=== PATIENT | female | born 1985 | race Caucasian/White ===

== ENCOUNTER → 2016-11-05 | Outpatient (CLI) | payer BC ==
--- NOTE | 2016-11-05 11:42 | RAD ---
EXAM DESCRIPTION: Chest,2 Views CLINICAL HISTORY: Wheezing COMPARISON: None available. FINDINGS: Frontal and lateral views of the chest. Cardiomediastinal and pulmonary vascularity are within normal limits. Lungs are clear without focal consolidative infiltrates. No pleural effusion. No pneumothorax. No acute osseous abnormality. IMPRESSION: No radiographic evidence of acute cardiopulmonary disease. Electronically signed by: Michel Moran MD 11/05/2016 11:41 AM CDT
== END | disposition home or self-care (01) ==
LOC: YCFC.O 09:00
PROVIDERS: ATTEND Nurse Practitioner Family
DX: R06.2 Wheezing (principal)

== ENCOUNTER 2017-02-05 14:26 | Emergency (ER) | payer BC ==
[2017-02-05 14:46] VITALS: TEMP 98.7
--- NOTE | 2017-02-05 16:06 | ED.PDOC ---
History of Present Illness - General Chief Complaint: General Stated Complaint: dizzy, past out yesterday, bloody stool. Time Seen by Provider: 02/05/17 15:35 Source: patient Exam Limitations: no limitations - History of Present Illness Initial Comments: YESTERDAY, PT NOTICED BRIGHT RED BLOOD IN STOOL. BM'S FEEL "SORE" THE PAST 2 D. DENIES H/O HEMORRHOIDS. YESTERDAY HAD SYNCOPAL EPISODE AT HOME. DENIES INJURY ANYWHERE. NO MS CHANGES. PT WENT TO CLINIC TODAY AND FELT DIZZY SO THEY WALKED HER TO ER. ALL SX STARTED YEST. NO SIMILAR SX PREVIOUSLY. Severity: moderate Improving Factors: nothing Worsening Factors: nothing Associated Symptoms: syncope Allergies/Adverse Reactions: Allergies NO KNOWN ALLERGY Allergy (Verified 04/23/12 08:56) Home Medications: Ambulatory Orders Albuterol Sulfate [Proair Hfa] 1 inh INH BID PRN 02/05/17 Mometasone Furoate-Formoterol [Dulera 100-5 Mcg/Act] 2 inh INH BID 02/05/17 Review of Systems - Review of Systems Constitutional: Denies: chills, fever EENTM: States: no symptoms reported Respiratory: States: no symptoms reported Cardiology: States: no symptoms reported Gastrointestinal/Abdominal: Denies: abdominal pain, diarrhea, nausea, vomiting Genitourinary: States: no symptoms reported Musculoskeletal: States: no symptoms reported. Denies: neck pain Skin: States: no symptoms reported Neurological: States: other - NO LIGHT-HEADEDNESS SUPINE. POS LIGHT HEADED WHEN STANDS. Endocrine: States: no symptoms reported Hematologic/Lymphatic: States: no symptoms reported All other Systems: Reviewed and Negative Past Medical History (General) - Patient Medical History Hx Seizures: No Hx Stroke: No Hx Asthma: Yes Hx of COPD: No Hx Cardiac Disorders: No Hx Congestive Heart Failure: No Hx Hypertension: No Hx Thyroid Disease: No Hx Diabetes: No Hx of HIV: No Hx Hepatitis C: No - Vaccination History Hx Tetanus, Diphtheria Vaccination: No Hx Influenza Vaccination: No - Social History Hx Tobacco Use: No Hx Alcohol Use: Yes Hx Substance Use: No Hx Depression: No Hx Physical Abuse: No Hx Emotional Abuse: No Hx Suspected Abuse: No - Female History Patient is a Female of Child Bearing Age (10 -59 yrs old): Yes Hx Last Menstrual Period: 12/21/16 Patient : No Family Medical History - Family History Grandparents Family History: No Known Living Status: Hx Cardiac Disease: Yes Hx Family;Other: uncle- cancer. dad-mi. Physical Exam - Physical Exam General Appearance: Alert, Well Nourished Eye Exam: bilateral normal Ears, Nose, Throat: normal ENT inspection Neck: non-tender, full range of motion, supple Respiratory: chest non-tender, lungs clear, normal breath sounds, no respiratory distress, no accessory muscle use Cardiovascular/Chest: normal peripheral pulses, regular rate, rhythm, no edema, no gallop, no JVD, no murmur Peripheral Pulses: radial,right: 2+, radial,left: 2+ Gastrointestinal/Abdominal: normal bowel sounds, non tender, soft, no organomegaly, no pulsatile mass Rectal Exam: normal rectal tone, other - NO GROSS HEMATURIA. HEMOCCULT PENDING. 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 HEMOCCULT POS. UA PENDING. CMP ELEV LFT'S CBC WNL (HGB 12.9) EKG SINUS TYLER. WITH POS HEMOCCULT STOOLS, MILD LIGHT HEADEDNESS WITH STANDING, AND PT ADMITIS TO POOR PO FLUID INTAKE, I AM GIVING 1 L NS BOLUS. SINCE VS WNL AND NO ANEMIA, IT IS A VERY SLOW GI BLEED, THUS PT DOES NOT NEED ADMISSION. SAFE FOR DC TO HOME WITH CLOSE F/U THIS WEEK THIS WITH PCP TO GET REFERRAL TO GI FOR COLONOSCOPY AND EGD. UA: SMALL LEUK EST, 3-5 WBC. PT IS YOUNG AND ASYMPTOMATIC RE: G/U, THUS NO ABX INDICATED UNTIL CULTURE (ORDERED). - EKG/XRAY/CT EKG: Tyler, Sinus Departure - Departure Clinical Impression: Hematochezia, Heme + stool, Syncope, Light-headed, Elevated LFTs Disposition: Discharge to Home or Self Care Condition: Fair Departure Forms: ED Discharge - Pt. Copy, Patient Portal Self Enrollment Instructions: Fecal Occult Blood Test Diet: resume usual diet Activity: increase activity as tolerated Referrals: Ashtyn Armijo NP [Primary Care Provider] - 1-2 Days Home Medications: Ambulatory Orders Albuterol Sulfate [Proair Hfa] 1 inh INH BID PRN 02/05/17 Mometasone Furoate-Formoterol [Dulera 100-5 Mcg/Act] 2 inh INH BID 02/05/17 Additional Instructions: Please see your regular doctor in the next 2 days so he or she can arrange for you to see a doctor to schedule a colonoscopy and EGD to ascertain the cause of your GI bleeding.
[2017-02-05] MEDS ORDERED: SODIUM CHLORIDE 0.9% 1000ML 1,000 ML IVS ONE (17:10)
[2017-02-05 19:07] VITALS: BP 122/78; O2SAT 97
== END 2017-02-05 19:07 | disposition home or self-care (01) ==
LOC: ER 14:26
DX: K92.1 Melena (principal); R55 Syncope and collapse; R79.89 Other specified abnormal findings of blood chemistry
CPT/HCPCS: 80053; 81001; 82270; 85025; 87086; 93005; J7030

== ENCOUNTER 2017-10-06 23:12 | Emergency (ER) | payer SELFPAY ==
[2017-10-06 23:28] VITALS: BP 107/73; TEMP 98; O2SAT 95
--- NOTE | 2017-10-06 23:51 | ED.PDOC ---
History of Present Illness - General Chief Complaint: Problem Stated Complaint: possible tampon in vagina Time Seen by Provider: 10/06/17 23:49 Source: patient Exam Limitations: no limitations - History of Present Illness Initial Comments: Socorro Gamez 31 y/o female on her periods stated unable retrieve her vaginal tampons for the last 1 1/2 days.Denies fever ,body aches or abdominal pains. Timing/Duration: yesterday Quality: other - NO PAIN Onset Location: unknown Radiation: none Prior abdominal problems: none Sexual intercourse history: single partner Improving Factors: nothing Worsening Factors: nothing Associated Symptoms: denies symptoms Allergies/Adverse Reactions: Allergies NO KNOWN ALLERGY Allergy (Verified 04/23/12 08:56) Home Medications: Ambulatory Orders Albuterol Sulfate [Proair Hfa] 1 inh INH BID PRN 02/05/17 Mometasone Furoate-Formoterol [Dulera 100-5 Mcg/Act] 2 inh INH BID 02/05/17 Clindamycin HCl 150 mg PO TID #15 cap 10/07/17 Review of Systems - Review of Systems Constitutional: States: no symptoms reported EENTM: States: no symptoms reported Respiratory: States: no symptoms reported Cardiology: States: no symptoms reported Gastrointestinal/Abdominal: States: no symptoms reported Musculoskeletal: States: see HPI Skin: States: no symptoms reported Past Medical History (General) - Patient Medical History Hx Seizures: No Hx Stroke: No Hx Asthma: Yes Hx of COPD: No Hx Cardiac Disorders: No Hx Congestive Heart Failure: No Hx Hypertension: No Hx Thyroid Disease: No Hx Diabetes: No Hx of HIV: No Hx Hepatitis C: No Surgical History: no surgical history - Vaccination History Hx Tetanus, Diphtheria Vaccination: No Hx Influenza Vaccination: No - Social History Hx Tobacco Use: No Hx Alcohol Use: Yes Hx Substance Use: No Hx Depression: No Hx Physical Abuse: No Hx Emotional Abuse: No Hx Suspected Abuse: No - Female History Patient is a Female of Child Bearing Age (10 -59 yrs old): Yes Hx Last Menstrual Period: 10/06/17 Patient : No - Triage Comment ED Triage Comment: unable to find tampon that was placed yesterday. Family Medical History - Family History Grandparents Family History: No Known Living Status: Hx Cardiac Disease: Yes Hx Family;Other: uncle- cancer. dad-mi. Physical Exam - Physical Exam General Appearance: Alert, Comfortable, No apparent distress Eyes, Ears, Nose, Throat Exam: normal ENT inspection Neck: non-tender, full range of motion, supple Cardiovascular/Respiratory: regular rate, rhythm, no M/R/G, normal peripheral pulses, normal breath sounds, no respiratory distress Gastrointestinal/Abdominal: normal bowel sounds, non tender, soft Pelvic Exam: speculum exam normal, no cerv. motion tender, other - retained vaginal tampon pulled out with taylor forceps Back Exam: normal inspection, no CVA tenderness, no vertebral tenderness Extremity: non-tender, normal inspection, no pedal edema, no calf tenderness Neurologic: alert, oriented x 3 Progress - Progress Progress: 10/06/17 23:53 Vital Signs - 8 hr 10/06/17 23:25 Temperature 98.0 F Pulse Rate [ 76 Right] Respiratory 20 Rate Blood Pressure 107/73 [Left Arm] O2 Sat by Pulse 95 Oximetry Procedures - Foreign Body Removal Foreign Body Removal: other - vaginal tampons Foreign Body Physician Comment:: pilled out with taylor forceps-uncomplicated Departure - Departure Clinical Impression: Retained tampon Qualifiers: Encounter type: initial encounter Qualified Code(s): T19.2XXA - Foreign body in vulva and vagina, initial encounter Time of Disposition: 00:29 Disposition: Discharge to Home or Self Care Condition: Good Departure Forms: ED Discharge - Pt. Copy, Patient Portal Self Enrollment Referrals: Ashtyn Armijo NP [Primary Care Provider] - 1-2 Weeks Prescriptions: Clindamycin HCl 150 mg PO TID #15 cap Home Medications: Ambulatory Orders Albuterol Sulfate [Proair Hfa] 1 inh INH BID PRN 02/05/17 Mometasone Furoate-Formoterol [Dulera 100-5 Mcg/Act] 2 inh INH BID 02/05/17 Clindamycin HCl 150 mg PO TID #15 cap 10/07/17 Additional Instructions: Return to ER as needed
[2017-10-07] MEDS ORDERED: CLINDAMYCIN HCL CAP 150 MG CAP PO ONE (00:29)
== END 2017-10-07 00:42 | disposition home or self-care (01) ==
LOC: ER 23:12
DX: T19.2XXA Foreign body in vulva and vagina, initial encounter (principal)

== ENCOUNTER 2018-09-27 23:54 | Emergency (ER) | payer SELFPAY ==
[2018-09-28 00:07] VITALS: TEMP 98; O2SAT 96
[2018-09-28] MEDS ORDERED: predniSONE 20 MG TAB PO ONE (00:10)
[2018-09-28] MEDS ORDERED: IBUPROFEN 200 MG TAB PO ONE (00:10)
[2018-09-28] MEDS ORDERED: IPRATROPIUM/ALBUTEROL 3 ML VIAL NEB ONE (00:10)
--- NOTE | 2018-09-28 00:46 | ED.PDOC ---
History of Present Illness - General Chief Complaint: Asthma Stated Complaint: SOB since [id number] today, Hx asthma Time Seen by Provider: 09/28/18 00:10 Source: patient Exam Limitations: no limitations - History of Present Illness Initial Comments: the patient is a 32-year-old female presenting to emergency room secondary to a feeling of upper airway shortness of breath. She does have a history of asthma and does feel like this is an asthma exacerbation. She has used her inhaler and her breathing treatments and is not feeling significantly better. Mild cough. No productive sputum. No sore throat or runny nose yet. No nausea or vomiting. No chest pain. No leg swelling. Symptoms started around 3 PM today. Timing/Duration: other Severity: mild Improving Factors: nothing Worsening Factors: nothing Associated Symptoms: shortness of breath - mild Allergies/Adverse Reactions: Allergies NO KNOWN ALLERGY Allergy (Verified 09/28/18 00:07) Home Medications: Ambulatory Orders Albuterol Sulfate [Proair Hfa] 1 inh INH BID PRN 02/05/17 Mometasone Furoate-Formoterol [Dulera 100-5 Mcg/Act] 2 inh INH BID 02/05/17 predniSONE [Prednisone] 20 mg PO DAILY #3 tab 09/28/18 Review of Systems - Review of Systems Constitutional: States: no symptoms reported EENTM: States: no symptoms reported Respiratory: States: cough, short of breath Cardiology: States: no symptoms reported Gastrointestinal/Abdominal: States: no symptoms reported Genitourinary: States: no symptoms reported Musculoskeletal: States: no symptoms reported Skin: States: no symptoms reported Neurological: States: no symptoms reported Endocrine: States: no symptoms reported All other Systems: No Change from Baseline Past Medical History (General) - Patient Medical History Hx Seizures: No Hx Stroke: No Hx Dementia: No Hx Asthma: Yes Hx of COPD: No Hx Cardiac Disorders: No Hx Congestive Heart Failure: No Hx Pacemaker: No Hx Hypertension: No Hx Thyroid Disease: No Hx Diabetes: No Hx Gastroesophageal Reflux: No Hx Renal Disease: No Hx Cancer: No Hx of HIV: No Hx Hepatitis C: No Hx MRSA: No - Vaccination History Hx Tetanus, Diphtheria Vaccination: No Hx Influenza Vaccination: No - Social History Hx Tobacco Use: No Hx Alcohol Use: Yes Hx Substance Use: No Hx Depression: No Hx Physical Abuse: No Hx Emotional Abuse: No Hx Suspected Abuse: No - Female History Hx Last Menstrual Period: 10/06/17 Patient : No Family Medical History - Family History Grandparents Family History: No Known Living Status: Hx Cardiac Disease: Yes Hx Family;Other: uncle- cancer. dad-mi. Physical Exam - Physical Exam General Appearance: Alert, Comfortable, No apparent distress Eye Exam: bilateral normal Ears, Nose, Throat: hearing grossly normal, normal ENT inspection, normal pharynx Neck: full range of motion, supple Respiratory: other - mild scattered wheezes and mild decreased breath sounds. Occasional rhonchi. Hoarse voice. 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 There does appear to be a mild bronchitis component. I would not be surprised if the patient developed a sore throat and runny nose over the next few days. She is to continue her breathing treatments. She'll be written for prednisone 20 mg daily for 3 days. ER warnings were given for any significant worsening. Obviously if the patient's condition did not improve or worsened then additional workup would be warranted at that time. follow-up with primary care doctor later this coming week. Departure - Departure Clinical Impression: Asthma exacerbation Qualifiers: Asthma severity: mild Asthma persistence: persistent Qualified Code(s): J45.31 - Mild persistent asthma with (acute) exacerbation Disposition: Discharge to Home or Self Care Condition: Fair Departure Forms: ED Discharge - Pt. Copy, Patient Portal Self Enrollment Diet: regular diet Activity: increase activity as tolerated Referrals: Ashtyn Armijo NP [Primary Care Provider] - 1-2 Weeks Prescriptions: predniSONE [Prednisone] 20 mg PO DAILY #3 tab Home Medications: Ambulatory Orders Albuterol Sulfate [Proair Hfa] 1 inh INH BID PRN 02/05/17 Mometasone Furoate-Formoterol [Dulera 100-5 Mcg/Act] 2 inh INH BID 02/05/17 predniSONE [Prednisone] 20 mg PO DAILY #3 tab 09/28/18 Additional Instructions: the patient's a 32-year-old female presenting to the emergency room for appears to be a mild asthma exacerbation. There does appear to be a mild bronchitis component. I would not be surprised if the patient developed a sore throat and runny nose over the next few days. She is to continue her breathing treatments. She'll be written for prednisone 20 mg daily for 3 days. ER warnings were given for any significant worsening. Obviously if the patient's condition did not improve or worsened then additional workup would be warranted at that time. follow-up with primary care doctor later this coming week.
[2018-09-28 00:51] VITALS: BP 113/72
== END 2018-09-28 00:52 | disposition home or self-care (01) ==
LOC: ER 23:54
DX: J45.31 Mild persistent asthma with (acute) exacerbation (principal); Z79.899 Other long term (current) drug therapy
CPT/HCPCS: 82948; J7512; J7620

== ENCOUNTER → 2019-09-29 | Outpatient (CLI) | payer OTHER | LOC: YCFC.O 15:35 | PROVIDERS: ATTEND Family Medicine | DX: Z03.818 Encounter for observation for suspected exposure to other biological agents ruled out (principal); Z20.828 Contact with and (suspected) exposure to other viral communicable diseases ==

== ENCOUNTER → 2019-10-05 | Outpatient (CLI) | payer OTHER ==
--- NOTE | 2019-10-05 14:23 | RAD ---
EXAM DESCRIPTION: XR CHEST 2 VIEWS CLINICAL HISTORY: EXPOSURE TO 2019 NOVEL CORONAVIRUS COMPARISON: None TECHNIQUE: PA/lateral FINDINGS: Heart size is normal. The lungs are clear. No acute bony abnormality. IMPRESSION: No acute cardiopulmonary process. Electronically signed by: Meng Beauchamp MD 10/05/2019 2:21 PM CDT
== END ==
LOC: YCFC.O 10:45
PROVIDERS: ATTEND Family Medicine
DX: Z20.828 Contact with and (suspected) exposure to other viral communicable diseases (principal); Z03.818 Encounter for observation for suspected exposure to other biological agents ruled out

== ENCOUNTER 2020-03-11 12:52 | Emergency (ER) | payer SELFPAY ==
[2020-03-11 13:49] VITALS: O2SAT 96
[2020-03-11] MEDS: HYDROcodone 7.5MG/APAP 325MG 1 EA TAB PO ONE (14:04)
--- NOTE | 2020-03-11 14:31 | ED.PDOC ---
History of Present Illness - General Chief Complaint: Respiratory Problem Stated Complaint: Cough, SOB, RICKETTS, diarrhea Time Seen by Provider: 03/11/20 13:25 Source: patient, RN notes reviewed, Vital Signs reviewed, family - History of Present Illness Comments: 34-year-old female with history of asthma presenting to the emergency department with cough, chest wall pain, shortness of breath, subjective fevers. Symptoms began 2 days ago. Patient has a known COVID-19 contact on 03/04/2020, and this family member tested positive earlier this week. She reports some nasal congestion, no loss of taste or smell. She does report some diarrhea today. She states she has been using her albuterol 1-2 times per day for the past 2 days, states she very rarely uses albuterol when well. Allergies/Adverse Reactions: Allergies NO KNOWN ALLERGY Allergy (Verified 03/11/20 13:49) Home Medications: Ambulatory Orders Albuterol Sulfate [Proair Hfa] 1 inh INH BID PRN 02/05/17 Mometasone Furoate-Formoterol [Dulera 100-5 Mcg/Act] 2 inh INH BID 02/05/17 predniSONE [Prednisone] 20 mg PO DAILY #3 tab 09/28/18 Ondansetron Odt [Zofran ODT] 4 - 8 mg PO Q6H PRN #15 tab 03/11/20 guaiFENesin W/CODEINE LIQ [Robitussin AC] 10 ml PO Q6H PRN #180 ml 03/11/20 predniSONE 40 mg PO DAILY #10 tab 03/11/20 Review of Systems - Review of Systems Constitutional: States: chills, fever - Subjective EENTM: States: nose congestion, throat pain. Denies: ear pain, nose pain, mouth pain Respiratory: States: cough, short of breath. Denies: wheezing Cardiology: States: chest pain. Denies: edema, syncope Gastrointestinal/Abdominal: States: diarrhea. Denies: abdominal pain, nausea, vomiting Genitourinary: Denies: pain Musculoskeletal: Denies: joint pain, muscle stiffness, neck pain Skin: Denies: lesions, rash Neurological: States: headache. Denies: anxiety, tingling, weakness Endocrine: Denies: increased hunger, increased thirst, increased urine Hematologic/Lymphatic: States: no symptoms reported Past Medical History (General) - Patient Medical History Hx Seizures: No Hx Stroke: No Hx Dementia: No Hx Asthma: Yes Hx of COPD: No Hx Cardiac Disorders: No Hx Congestive Heart Failure: No Hx Pacemaker: No Hx Hypertension: No Hx Thyroid Disease: No Hx Diabetes: No Hx Gastroesophageal Reflux: No Hx Renal Disease: No Hx Cancer: No Hx of HIV: No Hx Hepatitis C: No Hx MRSA: No Surgical History: other - Vaccination History Hx Tetanus, Diphtheria Vaccination: No Hx Influenza Vaccination: No Hx Pneumococcal Vaccination: No - Social History Hx Tobacco Use: No Hx Alcohol Use: Yes Hx Substance Use: No Hx Substance Use Treatment: No Hx Depression: No Hx Physical Abuse: No Hx Emotional Abuse: No Hx Suspected Abuse: No - Female History Patient is a Female of Child Bearing Age (10 -59 yrs old): Yes Hx Last Menstrual Period: 02/02/20 Patient : - Possibly Family Medical History - Family History Grandparents Family History: No Known Living Status: Hx Cardiac Disease: Yes Hx Family;Other: uncle- cancer. dad-mi. Physical Exam - Physical Exam General Appearance: Alert, Comfortable, Obese ENT Exam: hearing grossly normal, TMs normal, nasal congestion Neck: non-tender, full range of motion, supple Respiratory: chest non-tender, lungs clear, normal breath sounds, no respiratory distress, no accessory muscle use Cardiovascular/Chest: normal peripheral pulses, regular rate, rhythm, no edema, no gallop Gastrointestinal/Abdominal: non tender, soft Extremity: normal range of motion, non-tender Neurologic: no motor/sensory deficits, alert, normal mood/affect, oriented x 3 Skin Exam: normal color, warm/dry Progress - Progress Progress: 03/11/20 14:32 Rechecked. Discussed x-ray findings and plan for discharge home. Offered monoclonal antibody infusion, patient refused. Strict warnings given to return the emergency room for worsening shortness of breath, intractable vomiting, changes mental status, or any other concerns DDx: COVID-19 versus other viral URI, bronchitis, pneumonia MDM: 34-year-old female with history of asthma and morbid obesity presenting for cough, chest pain, shortness of breath, subjective fevers, diarrhea. She has a known COVID-19 contact. Strongly suspicious for COVID-19 infection at this time. She does meet criteria for monoclonal antibody therapy, this was offered, patient refused. Vital signs are normal, sats normal. No respiratory distress. Chest x-ray does show interstitial opacities suggestive of atypical infection, likely COVID-19. Will treat symptomatically. Strict ER warnings given. Kali Willard [id number] - Results/Orders Results/Orders: Chest x-ray reviewed personally by me at 2:25 PM. Shows interstitial opacities suggestive of atypical infection, suspicious for COVID-19 EXAM: X-RAY, Chest (1 View) HISTORY: chest pain, SOB, suspected COVID. COMPARISON: None. TECHNIQUE: AP view of the chest. FINDINGS: Lungs: Mild peripheral groundglass opacities in the bilateral lung bases. Pleural space: No pneumothorax or pleural effusion is present. Heart: The heart is normal in size. Bones: No acute bone abnormality. IMPRESSION: Mild groundglass opacities in the lung bases, although nonspecific these can be seen with Covid pneumonia. 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 Copy, ED Discharge - Work Release, Patient Portal Self Enrollment Instructions: Coronavirus Disease 2019 (COVID-19) (DC) Diet: resume usual diet Activity: increase activity as tolerated Referrals: Clarissa Chao MD [Primary Care Provider] - 1-5 Days Prescriptions: predniSONE 40 mg PO DAILY #10 tab guaiFENesin W/CODEINE LIQ [Robitussin AC] 10 ml PO Q6H PRN #180 ml PRN Reason: Cough Ondansetron Odt [Zofran ODT] 4 - 8 mg PO Q6H PRN #15 tab PRN Reason: Nausea Home Medications: Ambulatory Orders Albuterol Sulfate [Proair Hfa] 1 inh INH BID PRN 02/05/17 Mometasone Furoate-Formoterol [Dulera 100-5 Mcg/Act] 2 inh INH BID 02/05/17 predniSONE [Prednisone] 20 mg PO DAILY #3 tab 09/28/18 Ondansetron Odt [Zofran ODT] 4 - 8 mg PO Q6H PRN #15 tab 03/11/20 guaiFENesin W/CODEINE LIQ [Robitussin AC] 10 ml PO Q6H PRN #180 ml 03/11/20 predniSONE 40 mg PO DAILY #10 tab 03/11/20
[2020-03-11 15:12] VITALS: BP 114/75; TEMP 97.6
== END 2020-03-11 14:55 | disposition home or self-care (01) ==
LOC: ER 12:52
DX: U07.1 COVID-19 (principal); J20.9 Acute bronchitis, unspecified; J45.21 Mild intermittent asthma with (acute) exacerbation; Z79.899 Other long term (current) drug therapy